=== PATIENT | male | born 1930 | race African-American/Black ===

== ENCOUNTER → 2017-02-18 | Outpatient (CLI) | payer OTHER ==
[~2017-02-18] MED LIST: ADV250 IH; ALBU8HFA IH; ASPI-556 PO; BUME1TAB30 PO; CALC25 PO; CARV25 PO; DOCU250C91 PO; EPOE10I SQ; FERR-89 PO; FLUT16H NASAL; IPRA4AER IH; ISOS1TAB2 PO; MOME17N NASAL; MULT-950 PO; OMEP20CA10 PO; POTA8TAB4 PO; SPIR25 PO; TIOT185 IH; VALS1TAB7 PO; VITAD1000 PO
== END | disposition home or self-care (01) ==
LOC: MSR 11:27
PROVIDERS: ATTEND Internal Medicine Critical Care Medicine
DX: J44.9 Chronic obstructive pulmonary disease, unspecified (principal)
CPT/HCPCS: 94010; 94726; 94727; 94729